=== PATIENT | male | born 2000 | race African-American/Black ===

== ENCOUNTER 2022-09-21 08:59 | Outpatient (CLI) | payer OTHER ==
[~2022-09-21] VITALS: Ht 185.4 cm; Wt 103.9 kg
[2022-09-21 09:07] VITALS: BP 119/80; PULSE 63; TEMP 97.7
[2022-09-21] MEDS ORDERED: KEPPRA 500MG500 MG PO (09:11)
[2022-09-21 11:30] VITALS: BP 119/77; PULSE 64
--- NOTE | 2022-09-21 12:20 | NUR ---
PT ALERT AND ORIENTED. FINISHED WATER AND SNACKS IN ROOM. STATES FEELING READY TO DISCHARGE. PAPERWORK WENT OVER AND SIGNED. IV DISCONTINUED BREATHING EVEN AND UNLARBORED. PT WHEELED TO FRONT AND LEFT WITH DRIVING.
== END 2022-09-21 12:20 | disposition home or self-care (01) ==
LOC: COL.CAR 08:59
DX: R55 Syncope and collapse (principal)

== ENCOUNTER 2022-11-26 09:47 | Day surgery (SDC) | payer OTHER ==
[~2022-11-26] VITALS: Ht 185.5 cm; Wt 99.0 kg
[~2022-11-26 09:47] MED LIST: KEPPRA 500MG500 MG PO
[2022-11-26 10:09] VITALS: BP 128/67; PULSE 95; TEMP 97.7
--- NOTE | 2022-11-26 12:30 | NUR ---
procedure completed and dressing over site clean and dry, VSS 110/78, 80 reviewed discharge inst. with pt on care of site and followup, pt also has note from for activity level next several days, discharged amb. with supplies
== END 2022-11-26 12:15 | disposition home or self-care (01) ==
LOC: COL.CAR 09:47
DX: R55 Syncope and collapse (principal); F17.210 Nicotine dependence, cigarettes, uncomplicated; R56.9 Unspecified convulsions; Z79.899 Other long term (current) drug therapy
CPT/HCPCS: 27886; C1764